=== PATIENT | female | born 1985 | race Two or more races ===

== ENCOUNTER 2016-11-11 12:35 | Day surgery (SDC) | payer MEDICAID ==
[2016-11-11 13:14] LABS: MEAN CELL VOLUME 91.8 fl (81.0-99.0); MEAN CORPUSCULAR HEMOGLOBIN 30.6 pg (27.0-31.0); MEAN CORPUSCULAR HGB CONC 33.3 g/dl (33.0-37.0); RED CELL DISTRIBUTION WIDTH 12.9 % (11.5-14.5)
[2016-11-11 13:23] LABS: ABSOLUTE NEUTROPHIL COUNT 8.2 K/mm3 (1.8-7.7); BASO % 0.3 % (0.2-1.0); HEMATOCRIT 23.9 % (37.0-47.0); HEMOGLOBIN 7.9 gm/l (12.0-16.0); IMM NEUT% 0.3 % (0-1); LYMPH # 0.7 (1.0-4.8); LYMPH % 7.8 % (15-45); MEAN CELL VOLUME 93.7 fl (81.0-99.0); MEAN CORPUSCULAR HGB CONC 33.1 g/dl (33.0-37.0); MEAN PLATELET VOLUME 9.4 fl (7.4-10.4); MONO # 0.4 (0.0-0.8); MONO % 4.2 % (4-12); NEUT % 87.4 % (43-75); PLATELET COUNT 317 K/mm3 (130-400); RED CELL DISTRIBUTION WIDTH 12.9 % (11.5-14.5)
[2016-11-11 13:34] LABS: CALCIUM 8.1 mg/dL (8.6-10.3)
[2016-11-11] MEDS ORDERED: LACTATED RINGERS 1,000 ML ONE (13:36)
[2016-11-11 14:15] LABS: URINE BILIRUBIN NEGATIVE (NEGATIVE); URINE BLOOD TRACE (NEGATIVE); URINE GLUCOSE (UA) NEGATIVE (NEGATIVE); URINE LEUKOCYTE ESTERASE NEGATIVE (NEGATIVE); URINE NITRITE NEGATIVE (NEGATIVE); URINE PROTEIN TRACE (NEGATIVE); URINE UROBILINOGEN NORMAL (0-1 mg/dl)
[2016-11-11 14:17] LABS: URINE APPEARANCE CLEAR; URINE COLOR YELLOW
--- NOTE | 2016-11-11 14:27 | US ---
Exam: Complete pelvic ultrasound COMPARISON: None INDICATION: Intermittent bleeding for 2 months, syncope. Findings: Transabdominal and transvaginal pelvic ultrasound was obtained. Uterus measures 10.2 x 4.7 x 6.0 cm and is homogeneous in echotexture. No myometrial masses are seen. Endometrium is thickened and heterogeneous, measuring between 1.7 and 2.0 cm in bilayer thickness on the transvaginal exam. Right ovary measures 3.7 x 4.1 x 2.3 cm and left ovary measures 2.8 x 1.9 x 3.7 cm. There is no cystic or solid ovarian mass. There is no significant free fluid in cul-de-sac. IMPRESSION: 1. Heterogeneous and thickened endometrium. This could reflect pathology on the endometrial hyperplasia to carcinoma spectrum or perhaps an underlying endometrial polyp. Consider nonemergent sonohysterogram for further evaluation if indicated. 2. Normal ovaries. Report called to Dr. Millard 1423 hours 11/11/2016.
[2016-11-11 15:01] LABS: URINE BACTERIA FEW; URINE RBC 0-1 /hpf; URINE WBC NEG /hpf
[2016-11-11 15:16] LABS: PLATELET ESTIMATE NORMAL (NORMAL)
[2016-11-11] MEDS ORDERED: SODIUM CHLORIDE 0.9% 1,000 ML ONE (15:17)
[2016-11-11] MEDS ORDERED: MAGNESIUM HYDROXIDE 30 ML UDCUP PO PRN (16:28)
[2016-11-11] MEDS ORDERED: BISACODYL 5 MG TABLET.EC PO PRN (16:28)
[2016-11-11] MEDS ORDERED: SODIUM CHLORIDE 0.9% 100 ML IV PRN (16:28)
[2016-11-11] MEDS ORDERED: BISACODYL 10 MG SUP PR PRN (16:28)
[2016-11-11] MEDS ORDERED: BLISTEX LIPSTICK 1 EACH TP PRN (16:28)
[2016-11-11] MEDS ORDERED: MENTHOL/CETYLPYRD 1 EACH LOZENGE PO PRN (16:28)
[2016-11-11] MEDS ORDERED: ACETAMINOPHEN 325 MG TABLET PO PRN (16:28)
[2016-11-11 17:07] VITALS: BMI 31.5
[2016-11-11] MEDS ORDERED: FLU VACC 2016-17 (36MO-64Y)/PF 60 MCG/0.5 ML SYRINGE IM V ONE (17:16)
[2016-11-11] MEDS ORDERED: BLOOD Y PLUMSET W/CASSETTE ONE ×2 (17:34→19:11)
[2016-11-11] MEDS ORDERED: SODIUM CHLORIDE 0.9% 500 ML ONE (19:11)
--- NOTE | 2016-11-11 20:33 | HP ---
TYSON POE [id number] DATE OF : 1985 CHIEF COMPLAINT: The patient presents with a chief complaint of heavy vaginal bleeding. HISTORY OF PRESENT ILLNESS: The patient is a 31-year-old G-4, P-4 whose last period began on 09/21/2016. Her previous period had been in January of 2016. She began bleeding on 09/21/2016 and had bleeding daily until 10/23/2016 when the flow became very heavy with passage of clots and associated with severe cramping. She was seen in the [facility] on 10/23/2016, had a negative test, and was advised to follow-up with me. No specific pathology was identified at that time. I saw her on 10/28/2016. She had a normal examination and it was felt that she had dysfunctional bleeding. She was therefore started on an oral contraceptive, take four times daily for five days, and when she started withdrawal bleeding again to start taking the pill once a day. She did that and the bleeding stopped within 24 hours, however, she began bleeding again on 11/07/2016, and the flow now again has been very heavy. She presented to the office today, was pale and diaphoretic, had a syncopal episode in the office and was unable to sit or stand. She was therefore sent to the [facility] via ambulance. The patient is currently admitted for a blood transfusion and further assessment of the cause of her vaginal bleeding. PAST MEDICAL/SURGICAL HISTORY: The patient is a G-4, P-4. She has had four spontaneous vaginal births. She denies any other medical or surgical illnesses. ALLERGIES: She denies allergies. CURRENT MEDICATIONS: Just the oral contraceptive. REVIEW OF SYSTEMS: Noncontributory. PHYSICAL EXAMINATION: GENERAL: The patient is a cooperative, well-developed, well-nourished and pale-appearing white female who is currently in no acute distress. HEENT: The head is symmetric. Eyes, pupils equal in size and reactive to light and accommodation. Extraocular muscles are intact. Sclera nonicteric. The conjunctivae are pink. Ears, nose and throat are clear. NECK: Supple, without thyromegaly. CHEST: Clear to auscultation. BREASTS: Without mass. HEART: S1 and S2 are within normal limits. There is no S3 or S4. ABDOMEN: Soft and flat. Liver, kidneys and spleen are not palpable. There are no pelvic masses palpable abdominally. PELVIC: The external genitalia, Bartholin's glands, urethral and Brundage's glands are within normal limits. The vaginal vault contained about 50 mL of clotted blood. The cervix was smooth and the os was closed. The uterus was anteverted and normal sized. The adnexa are without mass or tenderness. EXTREMITIES: Without edema, clubbing or cyanosis. NEUROLOGIC: Grossly intact. PROVISIONAL DIAGNOSIS: Dysfunctional uterine bleeding. Initial hemoglobin was 7.9 grams, but because of patient's symptoms she is to be transfused two units of packed red blood cells. We will then reassess then in the A.M. If she has persistent bleeding, we may need to proceed with hysteroscopy. An ultrasound has documented the thickened endometrium. They could not differentiate between just primary endometrial hyperplasia versus a potential endometrial polyp.
[2016-11-11] MEDS: DOCUSATE SODIUM 100 MG CAPSULE PO SCH (21:23)
[2016-11-11] MEDS ORDERED: PUMP TUBING ONE (21:35)
[2016-11-11] MEDS: SODIUM CHLORIDE 0.9% 1,000 ML IV SCH (21:42)
[2016-11-12] MEDS: SODIUM CHLORIDE 0.9% 1,000 ML IV SCH (00:25)
[2016-11-12 06:41] LABS: HEMATOCRIT 25.6 % (37.0-47.0); HEMOGLOBIN 8.7 gm/l (12.0-16.0)
[2016-11-12] MEDS ORDERED: LACTATED RINGERS 1,000 ML ONE (11:36)
[2016-11-12] MEDS ORDERED: PRIMARY W/MICRODRIP 60 DROPS/ML ONE (11:36)
[2016-11-12] MEDS ORDERED: FENTANYL 5 ML ONE (11:59)
[2016-11-12] MEDS ORDERED: MIDAZOLAM HCL 1 MG/ML 2ML VIAL ONE (11:59)
[2016-11-12] MEDS ORDERED: SODIUM CHLORIDE 0.9% FLUSH 10 ML ONE (12:34)
[2016-11-12] MEDS ORDERED: ATROPINE SULFATE 0.4 MG/1 ML VIAL IV PRN (13:20)
[2016-11-12] MEDS ORDERED: ONDANSETRON 4 MG/2ML 2 ML VIAL IV PRN ×2 (13:20→14:51)
[2016-11-12] MEDS ORDERED: PROMETHAZINE HCL 25 MG/ML VIAL IM PRN (13:20)
[2016-11-12] MEDS ORDERED: NALOXONE HCL 0.4 MG/ML VIAL IV PRN (13:20)
[2016-11-12] MEDS ORDERED: FENTANYL 100 MCG/2 ML VIAL IV PRN (13:20)
[2016-11-12] MEDS ORDERED: MEPERIDINE 25 MG/ML SYRINGE IV PRN (13:20)
[2016-11-12] MEDS ORDERED: HYDROMORPHONE HCL 1 MG/ML SYRINGE IV PRN (13:20)
[2016-11-12] MEDS ORDERED: LACTATED RINGERS 1,000 ML IV SCH ×2 (13:30→14:51)
[2016-11-12] MEDS ORDERED: LIDOCAINE 2% (MULTI DOSE) 10 ML VIAL ONE (13:39)
[2016-11-12] MEDS ORDERED: PROPOFOL 20 ML IV ONE (13:39)
[2016-11-12] MEDS ORDERED: DEXAMETHASONE SOD PHOS 4 MG/1 ML VIAL ONE ×2 (13:41→13:43)
[2016-11-12] MEDS ORDERED: KETOROLAC TROMETHAMINE 30 MG/ML 1 ML VIAL ONE (14:04)
[2016-11-12 14:39] LABS: CHLAMYDIA BD Negative (Negative); N.GONORRHOEAE BD Negative (Negative); SOURCE Urine (())
[2016-11-12] MEDS ORDERED: OXYCODONE HCL 5 MG TABLET PO PRN (14:51)
[2016-11-12] MEDS ORDERED: ACETAMINOPHEN 325 MG TABLET PO PRN (14:51)
[2016-11-12] MEDS ORDERED: KETOROLAC TROMETHAMINE 30 MG/ML 1 ML VIAL IV PRN (14:51)
[2016-11-12] MEDS: DOCUSATE SODIUM 100 MG CAPSULE PO SCH (16:20)
[2016-11-12 16:45] VITALS: BP 110/70
--- NOTE | 2016-11-13 15:40 | OP ---
TYSON POE [id number] DATE OF OPERATION: 11/12/2016 SURGEON: Dr. Gaurav Lowe PREOPERATIVE DIAGNOSIS: Dysfunctional uterine bleeding. POSTOPERATIVE DIAGNOSIS: Dysfunctional uterine bleeding. OPERATION: HYSTEROSCOPY AND D&C. ANESTHESIA: General. FINDINGS: The uterine cavity contains very thick and lush endometrium, however, there was no evidence of polyp or leiomyoma formation. TECHNICAL PROCEDURE: After induction of satisfactory general anesthesia, the patient was placed in the supine lithotomy position, prepped and draped in the usual fashion. A weighted speculum was placed in the vagina and the anterior lip of the cervix was grasped with a single-tooth tenaculum. The endocervix was dilated using progressively larger Enriquez dilators to a 27 Urdu. The hysteroscope was introduced and the above findings noted. A posterior uterine wall biopsy was taken. The hysteroscope was then removed and the cavity treaded in all quadrants until no further tissue was obtained. The hysteroscope was then reintroduced and no further significant tissue or polypoid structures were noted. The procedure was then terminated. The patient tolerated the procedure well and left the operating room awake and in good condition. There were no complications. Instrument, needle and sponge counts are correct. Estimated blood loss was 20 mL. There was no blood replacement. Specimens removed were posterior uterine wall biopsy and endometrial curettings.
--- NOTE | 2016-11-16 09:40 | SURGPATH ---
[facility] [address] [place] [id number] Patient Name: TYSON POE MR#: [id number] : 1985 Gender: F Specimen #: [id number] Collected: 11/12/2016 Received: 11/15/2016 Reported: 11/16/2016 Submitting Phys: ADRIAN WHITE Copy To Phys: ANNIKA BOWEN [facility] Clinical History / Pre-Operative Diagnosis: NONE PROVIDED Specimen Source / Surgical Procedure Performed: #1-POSTERIOR UTERINE WALL BIOPSY; #2-ENDOMETRIAL CURETTINGS Interpretation: 1, 2. POSTERIOR UTERINE WALL BIOPSY AND ENDOMETRIAL CURETTINGS: - BENIGN SECRETORY PHASE ENDOMETRIUM Electronically Signed Out Paresh Sparrow M.D. Gross Description: #1 The specimen is received in a formalin filled container labeled with the patient's name and "posterior uterine wall biopsy". An aggregate of soft wells tissue fragments is 1.5 x 0.8 x 0.4 cm. Totally embedded in cassette #1. #2 The specimen is received in a formalin filled container labeled with the patient's name and "endometrial curetting". An aggregate of wells tissue admixed with hemorrhagic material is 4.6 x 3.0 x 2 cm. Totally embedded in cassettes 2A-2E. Arnaldo Segal PTaiwo Microscopic Description: Sections show abundant secretory phase benign endometrium with breakdown and stromal decidual change. There is no hyperplasia atypia, malignancy, or endometritis. 1: 47140 2: 34202 N92.1
== END 2016-11-12 16:37 | disposition home or self-care (01) ==
LOC: ED 12:35 → MS 14:32 → UNDOADMIN 14:32 → SUPCPDRO 16:28 → SDC 16:28 → MS 11-12 14:26 → SDC 11-12 16:37
PROVIDERS: ATTEND Obstetrics & Gynecology
PROC: 0UDB8ZX Extraction of Endometrium, Via Natural or Artificial Opening Endoscopic, Diagnostic (ICD-10-PCS; principal; 2016-11-12)
DX: N93.8 Other specified abnormal uterine and vaginal bleeding (principal)
CPT/HCPCS: 87491; 87591; 84703; 85027; 85025; 80048; 85014; 85018; 81001; 36415; 86920; 86922; 86921; 86901; 86850 ×3; 76856; 76830; 99285 ×2; 36430; 58558; J3010; J1100 ×2; J1885; J2250; J7120 ×2; J7040; J7030 ×3; J2001; P9016 ×2